=== PATIENT | male | born 1940 | race Two or more races ===

== ENCOUNTER → 2016-12-14 | Emergency (ER) | payer MEDICARE ==
[~2016-12-14] VITALS: Ht 172.7 cm; Wt 90.7 kg
[~2016-12-14] MED LIST: /WARF25TA PO; FLOM5CAP PO; ISOVUE-370 76% 100ML VIAL (Q9967) As Ordered ONE; NICO21DI26 TD; PERC5TAB6 PO; PERCOCET PO; TYLE325T5 PO
[2016-12-14 09:22] LABS: BASO % 0.3 % (0.0-1.0); EOS # 0.2 K/mm3 (0.0-0.50); EOS % 1.6 % (0.0-3.0); LARGE UNSTAINED CELL # 0.2 K/mm3 (0.0-0.4); LARGE UNSTAINED CELL % 1.7 % (0.0-4.0); LYMPH % 22.1 % (24.0-44.0); MEAN CORPUSCULAR HEMOGLOBIN 30.5 pg (27.0-33.0); MEAN CORPUSCULAR HGB CONC 34.5 g/dl (32.0-36.5); MEAN CORPUSCULAR VOLUME 88.4 fl (80.0-96.0); MONO # 0.8 K/mm3 (0.0-0.8); MONO % 9.1 % (0.0-5.0); NEUTROPHILS % 65.2 % (36.0-66.0); PLATELET COUNT, AUTOMATED 213 k/mm3 (150-450); RED CELL DISTRIBUTION WIDTH 12.8 % (11.5-14.5); WHITE BLOOD COUNT 9.2 K/mm3 (4.0-10.0)
[2016-12-14 09:30] LABS: INR 0.95
[2016-12-14 09:41] LABS: ALBUMIN 3.7 GM/DL (3.2-5.2); ALBUMIN/GLOBULIN RATIO 0.95 (1.00-1.93); ALKALINE PHOSPHATASE 98 U/L (45-117); ALT/SGPT 26 U/L (12-78); ANION GAP 6 MEQ/L (8-16); AST/SGOT 16 U/L (15-37); BILIRUBIN,DIRECT 0.2 MG/DL (0.0-0.2); BILIRUBIN,TOTAL 0.8 MG/DL (0.2-1.0); BLOOD UREA NITROGEN 11 MG/DL (7-18); CALCIUM LEVEL 8.7 MG/DL (8.8-10.2); CARBON DIOXIDE LEVEL 29 MEQ/L (21-32); CHLORIDE LEVEL 104 MEQ/L (98-107); CREATININE FOR GFR 1.03 MG/DL (0.70-1.30); GLOMERULAR FILTRATION RATE > 60.0 (>42); GLUCOSE, FASTING 92 MG/DL (83-110); POTASSIUM SERUM 3.7 MEQ/L (3.5-5.1); SODIUM LEVEL 139 MEQ/L (136-145); TOTAL PROTEIN 7.6 GM/DL (6.4-8.2)
--- NOTE | 2016-12-14 10:49 | REP ---
CT abdomen and pelvis with IV contrast, without bowel contrast for abdominal pain: There are no comparisons. The visualized lung armando are unremarkable. The hepatic parenchyma is homogeneous unremarkable. The gallbladder, pancreas and spleen are normal size and unremarkable. The adrenals, kidneys and abdominal aorta are unremarkable. There is no bowel distension or obstruction. There is no ascites or adenopathy. Pelvis: The patient reportedly has an appendectomy. 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 Impression: Essentially negative CT study of the abdomen and pelvis. There is no bowel distension or obstruction. There is no hydronephrosis. There is no mass or adenopathy. No ascites. The gallbladder is unremarkable. The patient reportedly has an appendectomy. Signed by Gibran Thompson MD 12/14/2016 10:40 A
[2016-12-14 11:26] VITALS: BP 152/87
--- NOTE | 2016-12-15 07:23 | ECGEPIP ---
Stationary ECG Study [facility] - ED Test Date: 2016-12-14 Pat Name: BRENDON RENAE Department: Room: - Gender: M [employer] Operator: REMI : 1940 Requested By: DARRELL Contreras Order Number: [id number] Reading MD: Mary Anne East Measurements Intervals [place] Rate: 91 P: 27 CO: 172 QRS: -14 QRSD: 95 T: 31 QT: 351 QTc: 432 Interpretive Statements SINUS RHYTHM DELAYED R PROGRESSION NSTTW ABNORMALITY ?INFERIOR INFARCT DECREASED RATE 07/30/12 Electronically Signed On 12-15-2016 7:23:35 EDT by Mary Anne East
== END | disposition home or self-care (01) ==
LOC: M ED 09:30
DX: R10.9 Unspecified abdominal pain (principal); F17.210 Nicotine dependence, cigarettes, uncomplicated
CPT/HCPCS: 74177; 80048; 80076; 83605; 83690; 85025; 85610; 93005; 93041; 99284; Q9967

== ENCOUNTER 2016-12-17 20:17 | Emergency (ER) | payer MEDICARE ==
[~2016-12-17] VITALS: Ht 172.7 cm; Wt 90.7 kg
[~2016-12-17 20:17] MED LIST changes: -FLOM5CAP PO; -ISOVUE-370 76% 100ML VIAL (Q9967) As Ordered ONE; -PERC5TAB6 PO
[2016-12-17] MEDS ORDERED: ONDANSETRON 4MG/2ML VIAL (J2405) IV ONE (21:15)
[2016-12-17] MEDS ORDERED: NS 500 ML IV ONE (21:15)
[2016-12-17] MEDS ORDERED: MORPHINE 4 MG/ML 1ML SYRINGE IV ONE (21:15)
[2016-12-17 22:24] LABS: BASO % 0.4 % (0.0-1.0); EOS # 0.2 K/mm3 (0.0-0.50); EOS % 1.9 % (0.0-3.0); LARGE UNSTAINED CELL # 0.2 K/mm3 (0.0-0.4); LARGE UNSTAINED CELL % 1.8 % (0.0-4.0); LYMPH # 1.8 K/mm3 (1.5-4.5); LYMPH % 18.4 % (24.0-44.0); MEAN CORPUSCULAR HEMOGLOBIN 29.3 pg (27.0-33.0); MEAN CORPUSCULAR HGB CONC 33.2 g/dl (32.0-36.5); MEAN CORPUSCULAR VOLUME 88.1 fl (80.0-96.0); MONO # 0.7 K/mm3 (0.0-0.8); MONO % 7.7 % (0.0-5.0); NEUTROPHILS # 6.1 K/mm3 (1.8-7.7); NEUTROPHILS % 69.7 % (36.0-66.0); PLATELET COUNT, AUTOMATED 194 k/mm3 (150-450); RED CELL DISTRIBUTION WIDTH 12.8 % (11.5-14.5); WHITE BLOOD COUNT 8.7 K/mm3 (4.0-10.0)
[2016-12-17 23:05] LABS: ALBUMIN 3.6 GM/DL (3.2-5.2); ALBUMIN/GLOBULIN RATIO 1.09 (1.00-1.93); ALKALINE PHOSPHATASE 93 U/L (45-117); ALT/SGPT 24 U/L (12-78); ANION GAP 6 MEQ/L (8-16); AST/SGOT 16 U/L (15-37); BILIRUBIN,DIRECT 0.1 MG/DL (0.0-0.2); BILIRUBIN,TOTAL 0.5 MG/DL (0.2-1.0); BLOOD UREA NITROGEN 11 MG/DL (7-18); CALCIUM LEVEL 8.6 MG/DL (8.8-10.2); CARBON DIOXIDE LEVEL 30 MEQ/L (21-32); CHLORIDE LEVEL 103 MEQ/L (98-107); CREATININE FOR GFR 0.91 MG/DL (0.70-1.30); GLOMERULAR FILTRATION RATE > 60.0 (>42); GLUCOSE, FASTING 104 MG/DL (83-110); POTASSIUM SERUM 3.6 MEQ/L (3.5-5.1); SODIUM LEVEL 139 MEQ/L (136-145); TOTAL PROTEIN 6.9 GM/DL (6.4-8.2)
--- NOTE | 2016-12-18 | REPUSA ---
CT of the abdomen and pelvis without contrast Clinical statement: Pain. Technique: Multiple axial CT images were obtained from the base of the lungs to the floor of the pelv is utilizing 5 mm axial slices without administration of contrast. Coronal and sagittal reconstructio ns were also obtained. Comparison: 12/14/2016. Findings: Chest: The visualized lung bases are clear. Abdomen: The kidneys are normal in size bilaterally. There is no change in moderate left-sided hydro nephrosis. However, the 5 mm obstructing stone in the left ureter as progress, and is now located jus t proximal to the left ureterovesical junction. The right renal collecting system is unremarkable. Th e liver, spleen, pancreas, gallbladder and adrenal glands are unremarkable. The aorta demonstrates no rmal caliber and contour. There is no abdominal lymphadenopathy or ascites. Pelvis: The bowel is unremarkable, with no obstructive or inflammatory changes. The urinary bladder i s within normal limits. There is no pelvic lymphadenopathy or ascites. The other pelvic structures ap pear unremarkable. Bones: There are no suspicious osseous abnormalities seen. Multilevel degenerative disc disease throu ghout the lumbar spine is grossly stable. Impression: No change in the severity of the moderate left-sided hydronephrosis. The 5 mm obstructin g stone has advanced into the distal left ureter since the prior study however. The other CT finding s are stable.
[2016-12-18] MEDS ORDERED: TAMSULOSIN 0.4 MG CAP PO ONE (00:15)
[2016-12-18] MEDS ORDERED: OXYCODONE/APAP 5MG/325MG(BULK FOR ED) 1 TABLET PO ONE (00:15)
[2016-12-18] MEDS ORDERED: PERC5TAB6 PO (00:17)
[2016-12-18] MEDS ORDERED: FLOM5CAP PO (00:19)
[2016-12-18 00:34] VITALS: BP 159/99
== END 2016-12-18 00:38 | disposition home or self-care (01) ==
LOC: M ED 22:37
DX: N20.1 Calculus of ureter (principal)
CPT/HCPCS: 36415; 74176; 80048; 80076; 81001; 83605; 83690; 85025; 96374; 96375; 99284; J2405

== ENCOUNTER → 2016-12-19 | Outpatient (REF) | payer MEDICARE ==
[~2016-12-19] MED LIST changes: +FLOM5CAP PO; +PERC5TAB6 PO
[2016-12-19 17:33] LABS: IONIZED CALCIUM 4.5 MG/DL (4.5-5.3)
[2016-12-19 19:11] LABS: ANION GAP 6 MEQ/L (8-16); BLOOD UREA NITROGEN 15 MG/DL (7-18); CALCIUM LEVEL 8.8 MG/DL (8.8-10.2); CARBON DIOXIDE LEVEL 30 MEQ/L (21-32); CHLORIDE LEVEL 106 MEQ/L (98-107); CHOLESTEROL LEVEL 150 MG/DL (<200); CREATININE FOR GFR 0.94 MG/DL (0.70-1.30); GLOMERULAR FILTRATION RATE > 60.0 (>42); GLUCOSE, FASTING 91 MG/DL (83-110); POTASSIUM SERUM 3.9 MEQ/L (3.5-5.1); SODIUM LEVEL 142 MEQ/L (136-145); TRIGLYCERIDES LEVEL 126 MG/DL (<150)
== END ==
LOC: M SFHCPLAZ 15:31
PROVIDERS: ATTEND Family Medicine
DX: N20.0 Calculus of kidney (principal); Z82.3 Family history of stroke; Z79.899 Other long term (current) drug therapy

== ENCOUNTER → 2017-01-23 | Outpatient (CLI) | payer MEDICARE ==
[~2017-01-23] MED LIST changes: +PERC5TAB12 PO; -PERC5TAB6 PO
--- NOTE | 2017-01-23 09:56 | REP ---
Abdominal aortic sonography: History: Screening for abdominal aortic aneurysm . Findings: Scanning through the retroperitoneum demonstrates that the abdominal aorta is normal in caliber at the level of the diaphragmatic hiatus measuring 2.0 x 2.2 cm in AP by transverse dimension respectively. The measurements of the aorta at the level of the renal artery origins could not be obtained due to abdominal gas. The distal aorta tapers to 2.4 x 1.8 cm AP by transverse dimension. The right and left common iliac arteries are normal measuring 1.1 and 1.0 cm in AP dimension respectively. No aneurysm is seen. No periaortic disease is observed. Impression: Negative abdominal aortic sonography. No evidence of aortic aneurysm seen. Signed by Abram Abebe MD 01/23/2017 09:47 A
== END ==
LOC: M RAD 09:13
PROVIDERS: ATTEND Family Medicine
DX: Z87.891 Personal history of nicotine dependence (principal)

== ENCOUNTER → 2019-11-09 | Outpatient (CLI) | payer MEDICARE ==
[~2019-11-09] MED LIST changes: -/WARF25TA PO; +COUM1TAB18 PO; +FLOM0.4C39 PO; -FLOM5CAP PO; +OXYC1TAB23 PO; -PERCOCET PO
--- NOTE | 2019-11-09 12:09 | REP ---
CHEST, TWO VIEWS: Two views of the chest are performed. COMPARISON: 07/11/2012 There is colonic interposition between the liver and right diaphragm. There is mild elevation of the right hemidiaphragm. There is no acute infiltrate. Lungs are clear. Heart is normal in size. There is mild calcification of the thoracic aorta. Mediastinal silhouette is unchanged. There are degenerative changes of the spine. IMPRESSION: No acute pulmonary disease. Electronically Signed by Gibran Phelps MD 11/10/2019 10:01 A
== END ==
LOC: M WUC 10:07
PROVIDERS: ATTEND Physician Assistant
DX: J20.9 Acute bronchitis, unspecified (principal)
CPT/HCPCS: 71046; 87502; U0002

== ENCOUNTER 2023-02-06 08:39 | Emergency (ER) | payer MEDICARE ==
[~2023-02-06] VITALS: Ht 172.7 cm; Wt 87.2 kg
[2023-02-06 12:53] VITALS: BP 138/82; O2SAT 95
[2023-02-06 12:54] VITALS: TEMP 98.2
== END 2023-02-06 12:57 | disposition home or self-care (01) ==
LOC: M ED 08:39
DX: M79.651 Pain in right thigh (principal); M16.11 Unilateral primary osteoarthritis, right hip; F17.200 Nicotine dependence, unspecified, uncomplicated; Z79.899 Other long term (current) drug therapy

== ENCOUNTER → 2023-03-22 | Outpatient (REF) | payer MEDICARE | LOC: M SFHCDERM 17:29 | PROVIDERS: ATTEND Nurse Practitioner Family | DX: C44.311 Basal cell carcinoma of skin of nose (principal) ==

== ENCOUNTER → 2023-08-08 | Outpatient (CLI) | payer MEDICARE | LOC: M PLAIMG 09:52 | PROVIDERS: ATTEND Nurse Practitioner Family | DX: M16.11 Unilateral primary osteoarthritis, right hip (principal) ==